=== PATIENT | female | born 1990 | race Caucasian/White ===

== ENCOUNTER 2018-11-29 18:40 | Emergency (ER) | payer BC ==
[2018-11-29 18:53] VITALS: BP 130/82
[2018-11-29] MEDS ORDERED: Cephalexin CAP* 500 MG PO ONE ×2 (19:26→19:28)
[2018-11-29] MEDS ORDERED: Phenazopyridine TAB* 100 MG PO ONE ×2 (19:27)
--- NOTE | 2018-11-29 19:30 | UC ---
Complaint Female HPI - HPI Summary HPI Summary: 28 yo female with the onset of severe dysuria/urgency and frequency which started this A< no f/c no n/v/d no back or abd pain no vag d/c or itch hx of kidney stone age 19 - History Of Current Complaint Chief Complaint: UCGU Stated Complaint: BURNING URINATION Time Seen by Provider: 11/29/18 19:20 Hx Obtained From: Patient Hx Last Menstrual Period: 11/23/2018 Onset/Duration: Gradual Onset Timing: Intermittent Severity Initially: Severe Severity Currently: None Pain Intensity: 9 - with urination Pain Scale Used: 0-10 Numeric Character: Burning Aggravating Factor(s): Urination Alleviating Factor(s): Nothing Associated Signs And Symptoms: Negative: Fever, Back Pain, Vaginal Bleeding/ Discharge, Nausea, Vomiting(# Of Episodes =), Genital Swelling, Genital Blisters - Allergies/Home Medications Allergies/Adverse Reactions: Allergies Allergy/AdvReac Type Severity Reaction Status Date / Time No Known Allergies Allergy Verified 11/29/18 18:50 Home Medications: Home Medications Melatonin [Meladox] 3 mg PO QPM 11/29/18 [History Confirmed 11/29/18] diphenhydrAMINE HCl [Benadryl Allergy] 25 mg PO QPM 11/29/18 [History Confirmed 11/29/18] PMH/Surg Hx/FS Hx/Imm Hx Previously Healthy: Yes GI/ History: Kidney Stones - Surgical History Surgical History: None - Family History Known Family History: Positive: Hypertension, Other - kidney stones - Social History Alcohol Use: None Substance Use Type: None Smoking Status (MU): Never Smoked Tobacco Review of Systems All Other Systems Reviewed And Are Negative: Yes Constitutional: Positive: Negative Skin: Positive: Negative Eyes: Positive: Negative ENT: Positive: Negative Respiratory: Positive: Negative Cardiovascular: Positive: Negative Gastrointestinal: Positive: Negative Genitourinary: Positive: Dysuria, Frequency, Urgency Motor: Positive: Negative Neurovascular: Positive: Negative Musculoskeletal: Positive: Arthralgia Neurological: Positive: Negative Psychological: Positive: Negative Physical Exam Triage Information Reviewed: Yes Appearance: Well-Appearing, No Pain Distress, Well-Nourished Vital Signs: Initial Vital Signs Temp 98.7 F 11/29/18 18:50 Pulse 95 11/29/18 18:50 Resp 18 11/29/18 18:50 BP 162/88 11/29/18 18:50 Pulse Ox 98 11/29/18 18:50 Vital Signs Reviewed: Yes Eyes: Positive: Conjunctiva Inflamed ENT: Positive: Hearing grossly normal. Negative: Nasal congestion, Nasal drainage, Trismus, Muffled voice, Hoarse voice Neck: Positive: Nontender, No Lymphadenopathy Respiratory: Positive: Lungs clear, Normal breath sounds, No respiratory distress, No accessory muscle use Cardiovascular: Positive: RRR, No Murmur Abdomen Description: Positive: Nontender, No Organomegaly, Soft. Negative: CVA Tenderness (R), CVA Tenderness (L) Bowel Sounds: Positive: Present Musculoskeletal: Positive: ROM Intact, No Edema Neurological: Positive: Alert Psychological Exam: Normal Skin Exam: Normal Diagnostics - Laboratory Lab Results: Urine ++ leuks, ++ rbcs Complaint Female Dx - Differential Dx/Diagnosis Provider Diagnosis: Dysuria Discharge - Sign-Out/Discharge Documenting (check all that apply): Patient Departure All imaging exams completed and their final reports reviewed: No Studies - Discharge Plan Condition: Stable Disposition: HOME Prescriptions: Cephalexin CAP* [Keflex CAP*] 500 mg PO BID #8 cap Phenazopyridine TAB* [Pyridium TAB*] 100 mg PO TID #3 tab Patient Education Materials: Dysuria (ED) Referrals: No Primary Care Phys,NOPCP [Primary Care Provider] - Additional Instructions: I suspect a UTI The urine culture is pending Recheck for new or worsening symptoms recheck in 2 days if not better - Billing Disposition and Condition Condition: STABLE Disposition: Home
--- NOTE | 2018-12-01 17:07 | UC ---
- Progress Note Progress Note: Pt with + E. Coli on cephalexin await sensitivity yesica [email or web address] 12/01/18 Course/Dx - Diagnoses Provider Diagnoses: Dysuria Discharge - Sign-Out/Discharge Documenting (check all that apply): Post-Discharge Follow Up All imaging exams completed and their final reports reviewed: No Studies - Discharge Plan Condition: Stable Disposition: HOME Prescriptions: Cephalexin CAP* [Keflex CAP*] 500 mg PO BID #8 cap Phenazopyridine TAB* [Pyridium TAB*] 100 mg PO TID #3 tab Patient Education Materials: Dysuria (ED) Referrals: No Primary Care Phys,NOPCP [Primary Care Provider] - Additional Instructions: I suspect a UTI The urine culture is pending Recheck for new or worsening symptoms recheck in 2 days if not better - Billing Disposition and Condition Condition: STABLE Disposition: Home
--- NOTE | 2018-12-02 11:59 | UC ---
- Progress Note Progress Note: Pt called stating urine symptoms no better with keflex and asking for a change in anbx. Will switch her to macrobid BID for 5 days. Advise that if symptoms do not improve in 2 days with new anbx - should be rechecked. Course/Dx - Diagnoses Provider Diagnoses: Dysuria Discharge - Sign-Out/Discharge Documenting (check all that apply): Post-Discharge Follow Up All imaging exams completed and their final reports reviewed: No Studies - Discharge Plan Condition: Stable Disposition: HOME Prescriptions: Cephalexin CAP* [Keflex CAP*] 500 mg PO BID #8 cap Nitrofurantoin Monohyd/M-Cryst [Macrobid 100 mg Capsule] 100 mg PO BID #10 cap Phenazopyridine TAB* [Pyridium TAB*] 100 mg PO TID #3 tab Patient Education Materials: Dysuria (ED) Referrals: No Primary Care Phys,NOPCP [Primary Care Provider] - Additional Instructions: I suspect a UTI The urine culture is pending Recheck for new or worsening symptoms recheck in 2 days if not better - Billing Disposition and Condition Condition: STABLE Disposition: Home
== END 2018-11-29 19:43 | disposition home or self-care (01) ==
LOC: UCEAST 18:40
DX: R30.0 Dysuria (principal); Z87.442 Personal history of urinary calculi
CPT/HCPCS: 81002; 87077; 87086; 87186; 99203; A9270-GY; G0463

== ENCOUNTER 2019-01-16 14:34 | Emergency (ER) | payer BC ==
--- NOTE | 2019-01-16 14:39 | UC ---
Ear Complaint HPI - HPI Summary HPI Summary: 28 y/o female presents to the urgent care c/o left ear pain for the past 5 days. Pt reports ear pain is 7/10. she took Ibuprofen PO last night to alleviate symptoms. No medications today. Pt denies URI symptoms, sore throat, cough, VANEGAS, dizziness, SOB, chest pain, N/V/D. she has been healthy. - History of Current Complaint Stated Complaint: L EAR PAIN Time Seen by Provider: 01/16/19 14:38 Hx Obtained From: Patient Hx Last Menstrual Period: 11/23/2018 ?: No Onset/Duration: Gradual Onset, Lasting Days - 4 days, Still Present, Worse Since - last night Severity Initially: Mild Severity Currently: Moderate Pain Intensity: 7 Pain Scale Used: 0-10 Numeric Aggravating Factors: Other - pull ear Alleviating Factors: OTC Meds - Ibuprofen PO last night - Allergies/Home Medications Allergies/Adverse Reactions: Allergies Allergy/AdvReac Type Severity Reaction Status Date / Time No Known Allergies Allergy Verified 01/16/19 14:42 PMH/Surg Hx/FS Hx/Imm Hx Previously Healthy: Yes - Pt denies PMHX - Surgical History Surgical History: None - Family History Known Family History: Positive: Hypertension, Other - kidney stones - Social History Occupation: Employed Full-time Lives: With Family Alcohol Use: None Substance Use Type: None Smoking Status (MU): Never Smoked Tobacco Review of Systems All Other Systems Reviewed And Are Negative: Yes Constitutional: Positive: Negative Skin: Positive: Negative Eyes: Positive: Negative ENT: Positive: Ear Ache - left ear pain Respiratory: Positive: Negative Cardiovascular: Positive: Negative Gastrointestinal: Positive: Negative Genitourinary: Positive: Negative Motor: Positive: Negative Neurovascular: Positive: Negative Musculoskeletal: Positive: Negative Neurological: Positive: Negative Psychological: Positive: Negative Is Patient Immunocompromised?: No Physical Exam - Summary Physical Exam Summary: Vital signs: reviewed General: well developed, well nourished female sitting in the examining table w/ o any apparent distress Skin: [place], warm and dry, no evidence of atopic dermatitis, psoriasis, seborrhea. HEENT: -Head: atraumatic, non tender; no scalp dermatitis. -Eyes: sclera and conjunctiva clear, PERRLA, EOMI -Ears: no pre- or postauricular lymphadenopathy or erythema; b/L external ear canal clear, LF injected w/ erythema and pulging, no discharge. Rt TM WNL, No perforation. -Nose/Face: erythematous and edematous nasal mucosa with clear rhinorrhea, no frontal or maxillary sinus tender to palpation. -Mouth/Throat: Mucous membrane moist, posterior pharynx clear, no erythema or exudates. Neck: supple, FROM, nontender, no lymphadenopathy, no meningismus. Chest: Clear to auscultation, normal breath sounds Abd: soft, Bowel sounds active, Nontender. Back: no spinal or CVAT Neuro: A&O x4, GCS 15, no focal neuro deficits, normal behavior for age. Triage Information Reviewed: Yes Ear Complaint Course/Dx - Course Course Of Treatment: 28 y/o female presents to the urgent care c/o left ear pain for the past 5 days. Pt reports ear pain is 7/10. she took Ibuprofen PO last night to alleviate symptoms. No medications today. Pt denies URI symptoms, sore throat, cough, VANEGAS, dizziness, SOB, chest pain, N/V/D. she has been healthy. Hx obtained. pt w/ left otitis media on examination. Pt Rx Amoxicillin PO as directed below. First dose given at the clinic today by the nurse. pt tolerated well medication. Pt advised to continue taken Ibuprofen PO to alelviate symptoms. Pt advised if symptoms do not improve or worsen to return to the urgent care or f/u with her PCP in 3 days for further management. Pt understood and agreed with plan of care. - Differential Dx/Diagnosis Differential Diagnosis/HQI/PQRI: Cerumen Impaction, Otitis Externa, Otitis Media , Perforated TM, URI Provider Diagnosis: Left otitis media Discharge ED - Sign-Out/Discharge Documenting (check all that apply): Patient Departure - D/C home All imaging exams completed and their final reports reviewed: No Studies - Discharge Plan Condition: Stable Disposition: HOME Prescriptions: Amoxicillin PO (*) [Amoxicillin 500 MG CAP*] 500 mg PO Q12H #20 cap Patient Education Materials: Ear Infection (ED) Referrals: [facility] [place] [facility] [Outside] - 3 Days Additional Instructions: 1- Please take the full course of the antibiotic to avoid resistance.Take yogurts w/ probiotics or Culturelle to protect your GI system 2-continue taking ibuprofen PO q6-8hrs prn as instructed after meals to alleviate pain and swelling. Increase fluid intake, eat well, rest and avoid strenuous exercise 3-If symptoms do not improve or worsen please return to the urgent care or f/u with your PCP in 3 days for further evaluation and treatment. - Billing Disposition and Condition Condition: STABLE Disposition: Home
[2019-01-16 14:44] VITALS: BP 127/83
[2019-01-16] MEDS ORDERED: Amoxicillin PO (*) 500 MG CAP PO ONE (14:56)
== END 2019-01-16 15:08 | disposition home or self-care (01) ==
LOC: UCEAST 14:34
DX: H66.92 Otitis media, unspecified, left ear (principal)
CPT/HCPCS: 99212; A9270-GY; G0463